=== PATIENT | male | born 1990 | race Caucasian/White ===

== ENCOUNTER 2017-06-02 09:09 | Emergency (ER) | payer SELFPAY ==
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
== END 2017-06-02 09:52 | disposition home or self-care (01) ==
LOC: ER 09:09
DX: Z04.1 Encounter for examination and observation following transport accident (principal); V43.52XA Car driver injured in collision with other type car in traffic accident, initial encounter; Y92.411 Interstate highway as the place of occurrence of the external cause
CPT/HCPCS: 99282